=== PATIENT | male | born 1930 | race Caucasian/White ===

== ENCOUNTER 2017-05-09 10:27 | Emergency (ER) | payer MEDICARE ==
[2017-05-09] MEDS ORDERED: TENIVAC VIAL IM ONE ×2 (10:41→10:56)
[2017-05-09] MEDS ORDERED: BACIGUENT PACKET TP ONE (10:41)
--- NOTE | 2017-05-09 10:48 | ERPHSYRPT ---
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 He was going to dining [place] and fell. Staff reported his left leg gave way. Pt does not remember the incident. Unknown last tetanus vaccine. Patient has no pain. He has scrapes in the left elbow. Staff reported he might have slipped with his boots. He is supposed to use a walker. He has hx of dementia. Loss of Consciousness: no loss of consciousness Severity of Pain-Max: none Severity of Pain-Current: none Allergies/Adverse Reactions: No Known Drug Allergies Allergy (Unverified 10/02/15 08:48) Home Medications: Albuterol 2.5 mg/3 ml Neb [Proventil 2.5 mg/3 ml Neb] 2.5 mg IH TIDPRN [History] Cholecalciferol (Vitamin D3) [Vitamin D3] 1,000 unit PO HS 10/02/15 [History] Donepezil HCl 10 mg [Aricept 10 MG] 10 mg PO HS 10/02/15 [History] Levothyroxine Sodium 50 Mcg [Synthroid 50 Mcg] 50 mcg PO DAILY 10/02/15 [ History] Lisinopril [Zestril] 40 mg PO DAILY 10/02/15 [History] Polyethylene Glycol 3350 17 gm [Miralax Powder 17GM PACKET] 17 gm PO 3XW [History] Hx Tetanus, Diphtheria Vaccination/Date Given: No Hx Influenza Vaccination/Date Given: Yes Hx Pneumococcal Vaccination/Date Given: Yes Immunizations Up to Date: Yes - Review of Systems Constitutional: No Fever Eyes: No Vision Changes Respiratory: No Dyspnea Cardiac: No Chest Pain, No Syncope Abdominal/Gastrointestinal: No Abdominal Pain, No Nausea, No Vomiting Musculoskeletal: Fall, No Back Pain, No Neck Pain, No Joint Pain Neurological: No Focal Weakness, No Headache, No Parasthesia All Other Systems: Reviewed and Negative - Past Medical History Pertinent Past Medical History: Yes Neurological History: Dementia Cardiac History: Hypertension History: Bladder Cancer - Past Surgical History Past Surgical History: Yes Other Surgical History: t&a - Social History Smoking Status: Former smoker Exposure to second hand smoke: No Alcohol Use: None Drug Use: none Patient Lives Alone: No (assisted living) Significant Family History: hypertension - Nursing Vital Signs Nursing Vital Signs: Initial Vital Signs Temperature 97.2 F 05/09/17 10:34 Pulse Rate 85 05/09/17 10:34 Respiratory Rate 18 05/09/17 10:34 Blood Pressure 185/101 05/09/17 10:34 O2 Sat by Pulse Oximetry 95 05/09/17 10:34 Pain Scale Pain Intensity 1 - [place] Coma Score Best Eye Response ([place]): (4) open spontaneously Best Verbal Response ([place]): (5) oriented (year 2016) Best Motor Response ([place]): (6) obeys commands [place] Total: 15 - Physical Exam General Appearance: alert Head Injury: no evidence of injury Eye Exam: PERRL/EOMI ENT Exam: airway nml Neck Exam: supple, trachea midline, full range of motion, No pain on movement of neck, No mid-line tenderness Respiratory/Chest Exam: normal breath sounds, No chest tenderness, No respiratory distress Cardiovascular Exam: normal heart sounds, regular rate/rhythm Gastrointestinal Exam: soft, No tenderness, No distention Genitalia Exam: normal genital exam Back Exam: normal inspection, No vertebral tenderness Extremity Exam: normal range of motion, other (abrasions left elbow), No tenderness Neurologic Exam: alert, 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, 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, nml station & gait (ambulated to hallway), sensation nml, No motor deficits Skin Exam: warm, dry SpO2 Interpretation: normal SpO2: 95 Oxygen Delivery: Room Air - Course Nursing assessment & vital signs reviewed: Yes - Radiology Exams left elbow X-ray Interpretation: Interpreted by me, No Fracture Ordered Tests: Active Orders 24 hr Category Date Time Status Wound Care STAT Care 05/09/17 10:41 Active ELBOW (MINIMUM 3 VIEWS) Stat Exams 05/09/17 10:55 Taken Medication Summary Discontinued Medications Generic Name Dose Route Start Last Admin Trade Name Mauricio PRN Reason Stop Dose Admin Bacitracin 0.9 gm 05/09/17 10:41 05/09/17 11:04 Baciguent Packet TP 05/09/17 10:42 0.9 gm STAT ONE Administration Bacitracin Confirm 05/09/17 10:52 Baciguent Packet Administered 05/09/17 10:53 Dose 1 gm .ROUTE .STK-MED ONE Tetanus/Diphtheria Toxoids Adsorbed 0.5 ml 05/09/17 10:41 05/09/17 10:55 Tenivac Vial IM 05/09/17 10:42 0.5 ml .ONCE ONE Administration Tetanus/Diphtheria Toxoids Adsorbed Confirm 05/09/17 10:56 Tenivac Vial Administered 05/09/17 10:57 Dose 0.5 ml IM .STK-MED ONE - Progress Progress Note: 05/09/17 10:51 Daughter in law here. States he appears to be at baseline. He amulated well. Will cleanse elbow abrasions. Xray pending but he has FROM of the elbow. 05/09/17 11:05 Pt stable. BP somewhat elevated. He is on medication. Arm is dressed. Will release to [facility] with family. Counseled pt/family regarding: diagnosis, need for follow-up - Departure Time of Disposition: 11:09 Departure Disposition: Extended Care Facility ([facility] Assisted Living) Clinical Impression: Fall from slip, trip, or stumble Qualifiers: Encounter type: initial encounter Qualified Code(s): W01.0XXA - Fall on same level from slipping, tripping and stumbling without subsequent striking against object, initial encounter Abrasion of left elbow Qualifiers: Encounter type: initial encounter Qualified Code(s): S50.312A - Abrasion of left elbow, initial encounter Condition: Stable Critical Care Time: No Referrals: CLIFF MANCUSO [Primary Care Provider] - Instructions: Preventing Falls, Skin Abrasions (DC) Additional Instructions: LACERATION CARE 1. Do not use peroxide, merthiolate, alcohol, or betadine. 2. Keep wound clean and dry. 3. Change dressing if it becomes wet or soiled. 4. If you must work, wear protective covering. 5. You may return to the emergency department or see your family physician for suture removal. 6. See your family physician or return to the emergency department for any of the following signs or symptoms: A. Redness B. Swelling C. Discolored drainage D. Red streaks E. Elevated temperature F. Other signs of infection Return for problems or concerns. Cleanse abrasions daily and apply bacitracin ointment. Call Rolando Mancuso for further problems or concerns. Tylenol 650mg every 6 hours if needed for discomfort.
[2017-05-09] MEDS ORDERED: BACIGUENT PACKET ONE (10:52)
[2017-05-09 11:43] VITALS: BP 164/101; PULSE 81; O2SAT 96
--- NOTE | 2017-05-09 16:12 | XRAY ---
Indication: Pain following fall. Comparison: None 3 views of the left elbow demonstrates tiny posterior olecranon process spur and anterior IV catheter. No other bony, articular, or soft tissue abnormalities.
== END 2017-05-09 11:40 | disposition home or self-care (01) ==
LOC: ED 10:27
DX: S50.312A Abrasion of left elbow, initial encounter (principal); W01.0XXA Fall on same level from slipping, tripping and stumbling without subsequent striking against object, initial encounter; Y92.129 Unspecified place in nursing home as the place of occurrence of the external cause; Z79.899 Other long term (current) drug therapy
CPT/HCPCS: 73080; 90471; 90714; 96372; 99283; A9270-GY